=== PATIENT | female | born 1970 | race Caucasian/White ===

== ENCOUNTER 2021-10-10 00:51 | Day surgery (SDC) | payer BC, SELFPAY ==
[2021-10-07 11:24] VITALS: BMI 46.3
--- NOTE | 2021-10-07 11:34 | PC.NURSE ---
Report to the Outpatient Waiting Room, entrance under the green pavilion located off [facility], at time 1030 on date 10/10/21. OR Time: 1230. - You and your visitor will be asked a series of questions to screen for COVID 19 for your protection. - A mask is required within the hospital. One visitor will be allowed to accompany the patient into the hospital. Patients visitor will be instructed to remain with patient at all times or leave the building. We will allow the visitor to come back to the postoperative area when patient is ready. Preoperative COVID Testing Requirements: No COVID Test needed if: (proof is required; if not received patient will have Rapid Test prior to entry) - Patient has received COVID Vaccine at least 14 days prior to procedure date or - Patient has positive COVID test result within last 90 days of surgery date. COVID Test needed if above criteria is not met Patients may have clear liquids (water, carbonated beverages, clear teas, apple juice) until 3 hours prior to surgery with a maximum of 20 ounces. - No food from midnight until time of surgery Take the following medications with a SIP of water the morning of surgery: PAIN PILL (IF NEEDED), INHALERS Medications to discontinue per physician: N/A Date to take last dose: N/A Please no make-up, nail citizen of the [place], hairspray, perfume, deodorant, or body powder the day of surgery. No jewelry (including any body piercings) or valuables the day of surgery, leave them at home. Please take a shower or bath the night before, or the morning of, surgery with an antibacterial soap. Wear comfortable, loose fitting clothing. - Jewelry must be removed prior to entering the operating room. Rings and piercings that are not removed may be cut off. - The hospital will not accept responsibility for valuables. - Please leave all valuables, including medications, at home the day of surgery. If you are going home after surgery, a licensed fuel truck driver must drive you home. - NO public transportation without another adult. - We recommend that an adult stay with you for 24 hours following discharge. - We also recommend that you do not drive, make important decision, drink alcoholic beverages, or take any drugs that were not prescribed by your health care provider for at least 24 hours after your discharge time. Follow any additional instructions given to you from your surgeon. Telephone instructions given to LEFTY RAMIREZ and asked if any additional questions and then verbalized understanding. Patient advised to call surgeon office or pre surgery nurse liaison [phone] if any additional questions.
--- NOTE | ~2021-10-10 | XR_ITS ---
EXAMINATION: XR retrograde pyelo w/stent RT EXAM DATE: 10/10/2021 14:01 INDICATION: Cysto, Retro, Laser, Stent On Right . TECHNIQUE: Fluoroscopy used during XR retrograde pyelo w/stent RT performed by Dr. Crow lockett MD, urologist. The radiologist Car Guzman M.D. dictating this report of the image(s) availabl e was not present for the procedure. Total fluoroscopic time of 24 seconds. The DAP for this proced ure was 0.66 mGym2. A total of 8 images sent to PACS from the exam. There is no prior study for c omparison. FINDINGS: Right ureter was cannulated and injected. There is severe right hydroureter. A double-J ur eteral stent was placed. Correlate with procedure note. IMPRESSION: Severe right hydroureter. Stent in position. Reviewed, dictated and finalized at location G.
--- NOTE | 2021-10-10 06:24 | ECG_ITS ---
Measurements Intervals [place] Rate: 83 P: 51 ID: [id number] QRS: 22 QRSD: 114 T: 33 QT: 365 QTc: 429 Interpretive Statements SINUS RHYTHM MODERATE INTRAVENTRICULAR CONDUCTION DELAY [110+ ms QRS DURATION] NONSPECIFIC T-WAVE ABNORMALITY ABNORMAL ECG NO PREVIOUS ECG AVAILABLE FOR COMPARISON Electronically Signed On 10-10-2021 16:27:42 CDT by Jorje Cage M.D.
--- NOTE | 2021-10-10 11:49 | WPDHPUPDATE1 ---
History and Physical Update Update Date/Time: 10/10/21 11:49 History and Physical has been reviewed, including an updated exam of the patient. There are NO changes in the patient's condition. Risks, benefits, and alternatives have been discussed and questions answered. Patient agrees to proceed with procedure. Proceed with cystoscopy, right retrograde pyelogram, right ureteroscopy with possible holmium laser, stone extraction, stent placement
[2021-10-10 12:00] VITALS: BP 140/81; PULSE 98; RESP 18; TEMP 36.9; O2SAT 98
[2021-10-10] MEDS: LACTATED RINGERS 1,000 ML 30 ML IV CONT (12:00)
--- NOTE | 2021-10-10 12:14 | P.PNAN_ITS ---
Anes - Initial Pre Proc Eval Procedure: Operation Date: 10/10/21 13:30 Proposed Procedures p Cystoscopy, Right Retrograde Pyelogram, Right Ureteroscopy, Right Stent Placement - Crow Arrington MD s Laser Right Stone Extraction - Crow Arrington MD Date/Time: 10/10/21 12:14 Surgeon: Crow Arrington MD Pre Op Diagnosis: Right Ureteral Stone Patient Data Age: 51 Gender: F Height: 1.68 m Weight: 130.36 kg Allergies Allergy/AdvReac Type Severity Reaction Status Date / Time No Known Allergies Allergy Verified 10/07/21 11:19 Home Medications Medication Instructions Recorded Confirmed Type albuterol sulfate 1 puff INHALATION QID PRN 10/07/21 10/07/21 History amlodipine 2.5 mg PO HS 10/07/21 10/07/21 History budesonide-formoterol [Symbicort] 2 puff INHALATION Q12H 10/07/21 10/07/21 History cyclobenzaprine 10 mg PO TID PRN 10/07/21 10/07/21 History hydrocodone-acetaminophen 1 tablet PO Q6H PRN 10/07/21 10/07/21 History lisinopril 40 mg PO HS 10/07/21 10/07/21 History omeprazole 20 mg PO HS 10/07/21 10/07/21 History paroxetine HCl 30 mg PO HS 10/07/21 10/07/21 History tamsulosin 0.4 mg PO DAILY 10/07/21 10/07/21 History Patient hx anesthesia problems: post op nausea/vomiting Family hx anesthesia problems: post op nausea/vomiting Results Review: All pre-operative results and documents have been reviewed as part of the pre-operative evaluation. [facility] Past Medical History Medical History Asthma Hypertension KHURRAM (obstructive sleep apnea) Social History Social History Smoking status: Never smoker Alcohol intake: current Alcohol use details: 2/MONTH Substance use: never Substance use type: does not use Living arrangements: with family Spiritual care concerns: No Anes - Eval Final PreProcedure Day of Procedure 10/10/21 12:14 Patient weight: morbidly obese Heart: regular rate and rhythm Lungs: clear to auscultation Airway: Mallampati scale class II Neurological: alert and oriented Last oral intake: >/= 8 hours ASA classification: III Emergent: no Anesthetic plan: proceed Anesthesia type and monitoring: general LMA and standard monitoring Results Review: All pre-operative results and documents have been reviewed as part of the pre-operative evaluation. Informed Consent: The patient's anesthetic plan and its attendant risks and benefits were discussed with the patient/family/POA. Questions were solicited and answers provided to the satisfaction of the patient/family/POA.
[2021-10-10] MEDS: SCOPOLAMINE 1.5 MG PATCH TRANSDERM (12:25)
[2021-10-10] MEDS: ALBUTEROL SULFATE (*SP) AEROSOL 1 PUFF 2 PUFF INHALATION (12:28)
[2021-10-10] MEDS: ceFAZolin 3 GM/D5W 100 ML 100 ML IVPB (13:09)
[2021-10-10] MEDS: LIDOCAINE HCL 2% GEL UROJET 10 ML PKG MUCOUS MEM (13:23)
--- NOTE | 2021-10-10 13:48 | P.OP_ITS ---
Procedure Note - Detailed Date of Procedure 10/10/21 Pre-op Diagnosis Right Ureteral Stone Post-op Diagnosis Same Procedure Performed Cystoscopy, right retrograde pyelogram, right ureteroscopy with holmium laser, stone extraction, stent placement 4.8 Nigerian contour Surgeon Crow Arrington MD Anesthesia General Description of Procedure Patient is taken to the operative suite correctly identified. Once anesthesia was obtained she was placed in dorsal lithotomy position and prepped and draped usual sterile fashion. Twenty-two Nigerian scope was inserted the bladder. There are no tumors noted. The right ureteral orifice was cannulated with a guidewire. Rigid ureteral scope was inserted. The stone was large and impacted. Using a 270 micron fiber we fragmented the stone into extremely small pieces. Some of those fragments were sent for analysis. Reinspection revealed no residual stone. Pyelogram was then performed to confirm placement of the stent. 4.8 Nigerian contour stent was then placed with the proximal end coiled in the renal pelvis and the distal in the bladder. Bladder was drained. 2% viscous lidocaine was inserted urethra patient is taken recovery stable condition. She will follow up in a week's time for stent removal. Drains Yes Packing No Pathology Yes Complications No immediate complications Condition Stable Disposition PACU
[2021-10-10 13:53] VITALS: BP 115/71; PULSE 112; RESP 10; TEMP 36.9; O2SAT 100
[2021-10-10 14:00] VITALS: BP 142/71; PULSE 94; RESP 14; O2SAT 100
[2021-10-10 14:15] VITALS: BP 153/81; PULSE 93; RESP 18; O2SAT 97
[2021-10-10 14:30] VITALS: BP 106/80; PULSE 90; RESP 16
[2021-10-10] MEDS: oxyCODONE HCL (*CRX) 5 MG TAB IR PO (14:40)
[2021-10-10 15:00] VITALS: BP 157/92; PULSE 84; RESP 16
== END 2021-10-10 15:15 | disposition home or self-care (01) ==
PROVIDERS: PCP Family Medicine; Visit Provider Urology
PROC: (CPT 52352; principal; 2021-10-10 13:30)
PROC: (CPT 52356; 2021-10-10 13:30)
DX: N13.2 Hydronephrosis with renal and ureteral calculous obstruction (principal); J45.909 Unspecified asthma, uncomplicated; I10 Essential (primary) hypertension; G47.33 Obstructive sleep apnea (adult) (pediatric); E66.01 Morbid (severe) obesity due to excess calories; Z68.42 Body mass index [BMI] 45.0-49.9, adult; Z79.51 Long term (current) use of inhaled steroids
CPT/HCPCS: 52356; 74420; 82365; 88300; 93005; A9270; C1758; C1769; C2617; J0690; J1100; J2405; J2704; J3010; J7120; Q9966

== ENCOUNTER 2021-11-11 10:39 | Outpatient (CLI) | payer BC, SELFPAY ==
--- NOTE | ~2021-11-11 | XR_ITS ---
EXAMINATION: XR abdomen/kub 1V INDICATION: Calcium kidney stone TECHNIQUE: Supine views of the abdomen were obtained on 2 radiographs. COMPARISON: 10/10/2021 FINDINGS: No definite urolithiasis is identified. The right internal ureteral stent has been removed. The bowel gas pattern is normal. There is severe lower lumbar spondylosis. There is mild osteoarthri tis of the hips. IMPRESSION: 1. No definite urolithiasis identified. Reviewed, dictated and finalized at location F.
== END 2021-11-11 10:40 | disposition home or self-care (01) ==
LOC: ANHIMG 10:47
PROVIDERS: PCP Family Medicine; Visit Provider Urology
DX: N20.0 Calculus of kidney (principal)
CPT/HCPCS: 74018

== ENCOUNTER 2022-11-11 10:47 | Outpatient (CLI) | payer BC, SELFPAY ==
--- NOTE | ~2022-11-11 | XR_ITS ---
EXAMINATION: XR abdomen/kub 1V INDICATION: Calcium kidney stone TECHNIQUE: Supine views of the abdomen were obtained on 2 radiographs. COMPARISON: 11/11/2021 FINDINGS: No definite urolithiasis is identified. The bowel gas pattern is normal. There is a moderat e volume of colonic stool. There is mild osteoarthritis of the hips. Severe lower lumbar spondylosis is noted. Surgical clips in the right upper quadrant are likely from prior cholecystectomy. The visua lized lung bases are clear. IMPRESSION: 1. No definite urolithiasis identified. Reviewed, dictated and finalized at location B.
== END 2022-11-11 10:48 | disposition home or self-care (01) ==
LOC: ANHIMG 10:52
PROVIDERS: PCP Family Medicine; Visit Provider Urology
DX: N20.0 Calculus of kidney (principal)
CPT/HCPCS: 74018

== ENCOUNTER 2024-06-27 09:59 | Outpatient (RCR) | payer OTHER, SELFPAY ==
--- NOTE | 2024-06-27 10:55 | OPREHPOC ---
Outpatient Therapy Plan of Care This is a Multidisciplinary Plan of Care that may contain components documented by all disciplines (PT, OT, and ST.) PT Problem 1 PT Problem #1 Knowledge Deficit PT Goal 1 Goal / Goal Update The patient will be independent in a home exercise program. Target Visit 1 Progress Met PT Problem 2 PT Problem #2 Impaired Range of Motion PT Goal 1 Goal / Goal Update The patient will demonstrate 0-110 degrees of right knee AROM to improve gait. Target Visit 18 PT Problem 3 PT Problem #3 Impaired Functional Mobility PT Goal 1 Goal / Goal Update 1. The patient will demonstrate 30% or less self perceived disability per the LEFS questionnaire. 2. The patient will ambulate 1,000 feet during the 6 minute walk test to improve community ambulation. Target Visit 18
--- NOTE | 2024-06-27 10:55 | PTOPEVAL1 ---
Assessment and note entered by Hermelinda Machado, PT Evaluation Information Assessment Status Evaluation Diagnosis s/p R TKA ICD-10 Condition Codes (PT) Pain in right knee M25.561 Onset 06/21/24 Subjective Information Jovanna Lindquist reports she will have her right knee replaced on 07/14/24. She has osteoarthritis in both knees causing the need for surgery. She has pain in both knees that increases with standing, walking, and stairs. She has to take steps one at a time. She also has left foot drop that developed after a back surgery in 2017. Reported Pain Level Pain Score 0,0: Self Report Assessment PT Clinical Summary Jovanna Lindquist presents with right knee OA and is scheduled to undergo a R TKA on 07/14/24. She has difficulty with standing, walking, and stairs. She objectively demonstrates decreased bilateral knee AROM, decreased knee and hip strength, impaired gait, and decreased balance. She was educated in a home exercise program for knee ROM, LE strength, and participated in gait training with a wheeled walker. She will re-initiate skilled PT after her surgery. Plan of Care Interventions Electrical Stimulation,Gait Training,Hot Pack/Cold Pack,Manual Therapy,Neuro Re-education,Patient/ Caregiver Education,Therapeutic Activities, Therapeutic Exercise PT Services Indicated Yes Treatment Frequency and 3 times a week for 18 visits Duration These treatments will address the objective and functional deficits as defined above. The patient will be advanced safely and appropriately in order for the patient to progress towards his/her prior level of function. Additional exercises will be introduced and as well as a comprehensive home exercise program upon discharge, if needed, ?to ensure carryover of functional gains achieved in the clinic. This treatment plan has been reviewed and agreement upon by the patient.
--- NOTE | 2024-07-17 11:54 | PTOPEVAL1 ---
Assessment and note entered by Billy [facility] Evaluation Information Assessment Status Progress Diagnosis R TKA ICD-10 Condition Codes (PT) Aftercare following joint replacement surgery Z47. 1 Onset 07/14/24 Subjective Information Pt. reports that she underwent surgery on 07/14/24 . She reports that she has attempted exercise, but has not been daily with her exercise due to pain. She reports that she did sleep good last night. She reports that she is currently retired. She reports that she was independent with all IADL's prior to surgery. She is currently using a walker, but was not before surgery. Reported Pain Level Pain Score 0,6: Self Report Assessment PT Clinical Summary Pt. enters the clinic 3 days post op for R TKA. She presents with impaired gait, impaired l.e. strength, edema, functional decline and pain on this date. Continued skilled PT is indicated in order to improve these areas to allow the pt. to be able to complete all IADL's with improved comfort and efficiency. Plan of Care Interventions Electrical Stimulation,Gait Training,Hot Pack/Cold Pack,Intermittent Compression Pump,Manual Therapy ,Neuro Re-education,Patient/Caregiver Education, Therapeutic Activities,Therapeutic Exercise PT Services Indicated Yes Treatment Frequency and 3x/week x 12 visits Duration These treatments will address the objective and functional deficits as defined above. The patient will be advanced safely and appropriately in order for the patient to progress towards his/her prior level of function. Additional exercises will be introduced and as well as a comprehensive home exercise program upon discharge, if needed, ?to ensure carryover of functional gains achieved in the clinic. This treatment plan has been reviewed and agreement upon by the patient.
--- NOTE | 2024-07-31 12:37 | PCPTNOTE ---
I reviewed the License Pending Therapist's documentation and agree with the findings.
--- NOTE | 2024-08-04 07:37 | PCPTNOTE ---
I reviewed the License Pending Therapist's documentation on 08/02/24 and agree with the findings.
--- NOTE | 2024-08-09 12:11 | OPREHPOC ---
Outpatient Therapy Plan of Care This is a Multidisciplinary Plan of Care that may contain components documented by all disciplines (PT, OT, and ST.) PT Problem 1 PT Problem #1 Knowledge Deficit PT Goal 1 Goal / Goal Update The patient will be independent in a home exercise program. Target Visit 1 Progress Met PT Problem 2 PT Problem #2 Impaired Range of Motion PT Goal 1 Goal / Goal Update The patient will demonstrate 0-110 degrees of right knee AROM to improve gait. Target Visit 12 Progress Partially Met PT Goal 2 Goal / Goal Update Continue Target Visit 18 PT Problem 3 PT Problem #3 Impaired Functional Mobility PT Goal 1 Goal / Goal Update 1. The patient will demonstrate 30% or less self perceived disability per the LEFS questionnaire. 2. The patient will ambulate 1,000 feet during the 6 minute walk test to improve community ambulation. Target Visit 12 Progress Not Met PT Goal 2 Goal / Goal Update Continue Target Visit 18 PT Problem 4 PT Problem #4 Edema PT Goal 1 Goal / Goal Update Reduce girth measurements at the right knee joint line to 45cm or less. Target Visit 12 Progress Met
--- NOTE | 2024-08-09 12:11 | PTOPPROG ---
Assessment and note entered by Astrid Blount, PT Evaluation Information Assessment Status Progress Diagnosis R TKA ICD-10 Condition Codes (PT) Aftercare following joint replacement surgery Z47. 1 Onset 07/14/24 Subjective Information Mrs. Lindquist feels like her ROM has improved since starting therapy following R TKA on 07/14/24. She has continued to perform her HEP daily and denies sleep interference due to R knee pain or stiffness. She is no longer using her walker for ambulation and has progressed to using a cane with her AFO on the left leg. Assessment PT Clinical Summary Mrs. Lindquist has attended 10 total skilled therapy visits for aftercare following R TKA on 07/14/24. She has made good improvements in strength and ROM since beginning therapy, however she still demonstrates gait deviations, impaired joint mobility, and impaired functional strength of the leg. She will benefit from continued skilled PT intervention to improve on these deficits to be able to perform all daily tasks without difficulty . Plan of Care Interventions Electrical Stimulation,Gait Training,Hot Pack/Cold Pack,Intermittent Compression Pump,Manual Therapy ,Neuro Re-education,Patient/Caregiver Education, Therapeutic Activities,Therapeutic Exercise,Self- Care/Home Management PT Services Indicated Yes Treatment Frequency and 2x/week for 8 visits Duration These treatments will address the objective and functional deficits as defined above. The patient will be advanced safely and appropriately in order for the patient to progress towards his/her prior level of function. Additional exercises will be introduced and as well as a comprehensive home exercise program upon discharge, if needed, ?to ensure carryover of functional gains achieved in the clinic. This treatment plan has been reviewed and agreement upon by the patient.
--- NOTE | 2024-08-14 12:46 | PCPTNOTE ---
I reviewed the License Pending Therapist's documentation and agree with the findings.
--- NOTE | 2024-08-21 16:40 | PCPTNOTE ---
I reviewed the License Pending Therapist's documentation and agree with the findings.
--- NOTE | 2024-09-01 09:31 | PCPTNOTE ---
Cancelled session due to illness.
--- NOTE | 2024-09-11 13:06 | OPREHPOC ---
Outpatient Therapy Plan of Care This is a Multidisciplinary Plan of Care that may contain components documented by all disciplines (PT, OT, and ST.) PT Problem 1 PT Problem #1 Knowledge Deficit PT Goal 1 Goal / Goal Update The patient will be independent in a home exercise program. Target Visit 1 Progress Met PT Problem 2 PT Problem #2 Impaired Range of Motion PT Goal 1 Goal / Goal Update The patient will demonstrate 0-110 degrees of right knee AROM to improve gait. Target Visit 12 Progress Met PT Goal 2 Goal / Goal Update Continue Target Visit 18 PT Problem 3 PT Problem #3 Impaired Functional Mobility PT Goal 1 Goal / Goal Update 1. The patient will demonstrate 30% or less self perceived disability per the LEFS questionnaire. 2. The patient will ambulate 1,000 feet during the 6 minute walk test to improve community ambulation. - not met Target Visit 12 Progress Partially Met PT Goal 2 Goal / Goal Update Continue Target Visit 18 PT Problem 4 PT Problem #4 Edema PT Goal 1 Goal / Goal Update Reduce girth measurements at the right knee joint line to 45cm or less. Target Visit 12 Progress Met
--- NOTE | 2024-09-11 13:06 | PTOPDC ---
Assessment and note entered by Astrid Blount, PT Evaluation Information Assessment Status Discharge Diagnosis R TKA ICD-10 Condition Codes (PT) Aftercare following joint replacement surgery Z47. 1 Onset 07/14/24 Subjective Information Since her last re-check Mrs. Lindquist notes 100% improvement in her R knee since surgery. She feels like her pain and ROM has improved the most and she has not been using an assistive device for ambulation for the last few weeks. She has continued to perform her HEP independently at home and Reported Pain Level Pain Score 3,0: Self Report Assessment PT Clinical Summary Mrs. Lindquist has attended 18 total skilled therapy visits addressing knee ROM and strength following a R TKA on 07/14/24. She's made good improvements in her strength and ROM since beginning therapy and is able to perform all her normal functional tasks without pain or difficulty due to the R knee . She has also met or partially met all therapeutic goals set for her and therefore skilled PT intervention is not longer indicated. Plan of Care PT Services Indicated No
== END 2024-09-11 14:00 | disposition home or self-care (01) ==
LOC: CHSPT 09:59
DX: M17.12 Unilateral primary osteoarthritis, left knee (principal); M25.561 Pain in right knee
CPT/HCPCS: 97016; 97110; 97112; 97116; 97140; 97161; 97530